=== PATIENT | female | born 1995 | race Caucasian/White ===

== ENCOUNTER 2017-12-20 16:20 | Emergency (ER) | payer SELFPAY ==
[~2017-12-20] VITALS: Ht 162.6 cm; Wt 58.1 kg
[2017-12-20 16:50] VITALS: Ht 162.6 cm; Wt 58.1 kg
[2017-12-20 19:23] VITALS: BP 121/49
== END 2017-12-20 19:23 | disposition home or self-care (01) ==
LOC: ED 16:20
DX: S40.212A Abrasion of left shoulder, initial encounter (principal); S60.519A Abrasion of unspecified hand, initial encounter; L03.114 Cellulitis of left upper limb; W05.1XXA Fall from non-moving nonmotorized scooter, initial encounter; Y93.89 Activity, other specified; Y92.89 Other specified places as the place of occurrence of the external cause; Y99.8 Other external cause status
CPT/HCPCS: 90715; J0696; Q0162